=== PATIENT | female | born 1990 | race American Indian/Alaskan Native ===

== ENCOUNTER 2020-02-09 12:27 | Outpatient (CLI) | payer BC ==
--- NOTE | 2020-02-09 13:28 | XRay Report ---
CHEST 2 VIEWS INDICATION / CLINICAL INFORMATION: SHORTNESS OF BREATH R06.02. COMPARISON: None available. FINDINGS: SUPPORT DEVICES: None. HEART / MEDIASTINUM: No significant abnormality. LUNGS / PLEURA: Faint reticular opacities in the posterior left lower lobe. No overt consolidation. N o pleural fluid or pneumothorax. ADDITIONAL FINDINGS: No significant additional findings. IMPRESSION: Faint left lower lobe opacities are concerning for pneumonia. Aspirated material could produce a moriah lar appearance. Signer Name: Baljinder Elizondo MD Signed: 02/09/2020 1:24 PM Workstation Name: [id number]
== END 2020-02-09 12:28 | disposition home or self-care (01) ==
LOC: SPVIMAG 12:27
PROVIDERS: ATTEND Internal Medicine
DX: R06.02 Shortness of breath (principal)
CPT/HCPCS: 71046